=== PATIENT | female | born 1970 | race African-American/Black ===

== ENCOUNTER → 2018-05-26 | Outpatient (CLI) | payer OTHER ==
[~2018-05-26] MED LIST: EXCEDRIN CAPLE1 EACH PO; EXCEDRIN SINUS1 EAC2 PO; FIORICET 50-321 EACH PO; HYDROCODON-ACE1 EACH PO; IBUPROFEN 800800 M1 PO; ZOFRAN 4 MG ORAL4 M1 DIS
== END ==
LOC: RAD 14:07
DX: Z12.31 Encounter for screening mammogram for malignant neoplasm of breast (principal)

== ENCOUNTER 2018-09-07 00:22 | Emergency (ER) | payer OTHER ==
[~2018-09-07] VITALS: Ht 170.2 cm; Wt 97.1 kg
[2018-09-07] MEDS ORDERED: COZAAR 25 MG TA25 M1 PO (00:57)
[2018-09-07] MEDS ORDERED: AMLODIPINE BESY10 MG PO (00:57)
[2018-09-07] MEDS ORDERED: NAPROSYN500 MG PO (01:00)
[2018-09-07] MEDS ORDERED: TESSALON PERLE100 MG PO (01:00)
[2018-09-07 01:17] VITALS: BP 150/103
--- NOTE | 2018-09-07 11:04 | EKG ---
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 ��������������������������������������������� 09/07/18 1104 0037 003 Mark Recio MD, FACC /EPI
== END 2018-09-07 01:31 | disposition home or self-care (01) ==
LOC: ER 00:22
DX: J06.9 Acute upper respiratory infection, unspecified (principal); R07.89 Other chest pain; G43.909 Migraine, unspecified, not intractable, without status migrainosus

== ENCOUNTER → 2018-12-05 | Outpatient (CLI) | payer OTHER ==
[~2018-12-05] MED LIST changes: +AMLODIPINE BESY10 MG PO; +COZAAR 25 MG TA25 M1 PO; +NAPROSYN500 MG PO; +TESSALON PERLE100 MG PO
== END ==
LOC: ULTRA 13:26
DX: N60.02 Solitary cyst of left breast (principal)

== ENCOUNTER 2018-12-23 14:33 | Emergency (ER) | payer OTHER ==
[~2018-12-23] VITALS: Ht 170.2 cm; Wt 101.6 kg
[2018-12-23 14:44] VITALS: BP 138/84
[2018-12-23] MEDS ORDERED: FLEXERIL PO (15:38)
[2018-12-23] MEDS ORDERED: IBUPROFEN 600600 M1 PO (15:38)
== END 2018-12-23 15:30 | disposition home or self-care (01) ==
LOC: ER 14:33
DX: S39.012A Strain of muscle, fascia and tendon of lower back, initial encounter (principal); G43.909 Migraine, unspecified, not intractable, without status migrainosus; I10 Essential (primary) hypertension; Z90.710 Acquired absence of both cervix and uterus; X58.XXXA Exposure to other specified factors, initial encounter; Y93.89 Activity, other specified; Y92.89 Other specified places as the place of occurrence of the external cause; Y99.8 Other external cause status

== ENCOUNTER → 2019-06-05 | Outpatient (CLI) | payer OTHER ==
[~2019-06-05] MED LIST changes: +FLEXERIL PO; +IBUPROFEN 600600 M1 PO
== END ==
LOC: RAD 11:12
DX: Z12.31 Encounter for screening mammogram for malignant neoplasm of breast (principal)

== ENCOUNTER 2019-09-21 15:33 | Emergency (ER) | payer OTHER ==
[~2019-09-21] VITALS: Ht 172.7 cm; Wt 101.6 kg
[2019-09-21 15:42] VITALS: BP 138/88
[2019-09-21 17:06] LABS: ABSOLUTE NEUTROPHILS 5.2 thou/uL (1.4-8.2); EOSINOPHILS 2.7 % (0.0-3.0); HEMATOCRIT 34.6 % (37.0-47.0); HEMOGLOBIN 11.5 gm/dL (12.0-15.0); LYMPHOCYTES 28.7 % (24.0-44.0); MCH 29.1 pg (26.0-34.0); MCHC 33.2 g/dL (28.0-37.0); MCV 87.7 fL (80.0-100.0); MONOCYTES 7.8 % (1.0-8.0); PLATELET COUNT 263 thou/uL (150-400); POLYS 59.8 % (36.0-66.0); RBC 3.94 mil/uL (4.20-5.00); RDW 13.4 % (10.5-14.5); WBC 8.8 thou/uL (4.0-11.0)
[2019-09-21 17:19] LABS: ANION GAP 7 mmol/L (7-16); BUN 9 mg/dL (7-18); CHLORIDE 101 mmol/L (98-107); CO2 28 mmol/L (21-32); CREATININE 0.7 mg/dL (0.6-1.0); GLUCOSE 108 mg/dL (74-106); POTASSIUM 3.4 mmol/L (3.5-5.1); SODIUM 136 mmol/L (136-145)
[2019-09-21 17:28] LABS: ALBUMIN 3.4 g/dL (3.4-5.0); SGOT 15 U/L (15-37); SGPT 22 U/L (30-65); TOTAL BILIRUBIN 0.2 mg/dL (<0.1-1.0); TOTAL PROTEIN 7.4 g/dL (6.4-8.2); TROPONIN-I <0.06 ng/mL (<0.06)
[2019-09-21] MEDS ORDERED: PROTONIX40 M1 PO (18:52)
[2019-09-21] MEDS ORDERED: CARAFATE 1 GM TA1 G1 PO (18:52)
--- NOTE | 2019-09-22 17:18 | EKG ---
[facility] [place] [address] ELECTROCARDIOGRAM REPORT Name: FORREST RIVAS Room #: DEP [facility]#: [id number] Admission: 09/21/19 Attend Phys: Discharge: 09/21/19 Date of : 74 Report #: [id number] THIS REPORT FOR: cc: Coni Alcaraz DNP, Mary E. DNP Couchonnal, Luis F. MD ~ THIS REPORT FOR: //name// [facility] ED Test Date: 2019-09-21 Test Time: 16:34:33 Pat Name: FORREST RIVAS Department: Room: Gender: Guide Excursion: eve : 1970 Requested By: Nhi Bland Order Number: [id number] MD: Sameer Poe Measurements Intervals [place] Rate: 81 P: 54 ND: 144 QRS: 26 QRSD: 95 T: 27 QT: 376 QTc: 437 Interpretive Statements Sinus rhythm Probable left atrial enlargement Compared to ECG 09/07/2018 00:37:53 No significant changes Electronically Signed On 09-22-2019 17:16:44 CDT by Sameer Poe [email or web address] <ELECTRONICALLY SIGNED> By: Sameer Poe MD 09/22/19 1716 [id number] [id number] Sameer Poe MD /EPI
== END 2019-09-21 19:12 | disposition home or self-care (01) ==
LOC: ER 15:33
PROVIDERS: Physician Assistant
DX: R13.10 Dysphagia, unspecified (principal); T38.0X5A Adverse effect of glucocorticoids and synthetic analogues, initial encounter; K29.70 Gastritis, unspecified, without bleeding; I10 Essential (primary) hypertension; G43.909 Migraine, unspecified, not intractable, without status migrainosus; Z90.49 Acquired absence of other specified parts of digestive tract; Z79.899 Other long term (current) drug therapy; Z79.82 Long term (current) use of aspirin; Y92.89 Other specified places as the place of occurrence of the external cause

== ENCOUNTER → 2019-11-09 | Outpatient (CLI) | payer OTHER ==
[~2019-11-09] MED LIST changes: +CARAFATE 1 GM TA1 G1 PO; +PROTONIX40 M1 PO
== END ==
LOC: RAD 14:55
DX: M25.78 Osteophyte, vertebrae (principal); M54.31 Sciatica, right side; M54.32 Sciatica, left side

== ENCOUNTER → 2019-12-29 | Outpatient (CLI) | payer OTHER | LOC: MRI 12:19 | PROVIDERS: ATTEND Nurse Practitioner | DX: M51.25 Other intervertebral disc displacement, thoracolumbar region (principal); R29.898 Other symptoms and signs involving the musculoskeletal system; M54.16 Radiculopathy, lumbar region; M25.78 Osteophyte, vertebrae ==

== ENCOUNTER → 2019-12-30 | Outpatient (CLI) | payer OTHER ==
[~2019-12-30] VITALS: Ht 170.2 cm; Wt 110.2 kg
--- NOTE | ~2019-12-30 | HPC ---
[facility] [place] [address] PAIN MANAGEMENT CONSULTATION Name: FORREST RIVAS Room #: REG [facility]#: [id number] Admission: 12/30/19 Attend Phys: Flaquito Evans MD Discharge: Date of : 74 Report #: [id number] THIS REPORT FOR: cc: Coni Alcaraz DNP, Mary E. DNP Brown, N. Wayne MD ~ CC: Coni Evans DATE OF SERVICE: 12/30/2019 CHIEF COMPLAINT: "Low back spasms and I can't stand." HISTORY: The patient is a 49-year-old female who has been referred to the pain clinic for evaluation of back pain. She has been having pain since September of this year. She was provided a Medrol Dosepak. Her pain continues to be problematic. She has attended physical therapy for low back pain. She continues to have pain that involves her right leg. She complains of a pulling sensation. It radiates down into the buttocks on the right side down into her lower leg. She did have epidural steroid injections in the distant past about 20 years ago. She found them helpful. Her job is somewhat physical. She complains of numbness, tingling in the right buttocks. This radiates down into her toes on the right side. Feels a numb sensation when she lies on her right side. She has tried nonsteroidal anti-inflammatory medications like ibuprofen. ALLERGIES: No known drug allergies. CURRENT MEDICATIONS: Cozaar 25 mg, amlodipine 10 mg, Excedrin caplets. PAST MEDICAL HISTORY: 1. Breast cyst on the left, 11/2018. 2. Hypertension. 3. Lumbar radicular pain. Epidurals approximately in the year 1999. 4. Migraine headaches. PAST SURGICAL HISTORY: Cholecystectomy, hysterectomy, fibroids, tubal ligation. 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 REVIEW OF SYSTEMS: Generally good health, fevers, headaches, wears glasses, numbness and tingling sensation. LABORATORY DATA: 1. MRI of the lumbar spine dated 12/29/2019. 2. L3-L4, there is no significant disk bulge. The central canal is not grossly narrowed. There is facet arthropathy and hypertrophy of the ligamentum flavum. [address] [address] PAIN MANAGEMENT CONSULTATION Name: FORREST RIVAS Room #: REG [facility]#: [id number] Admission: 12/30/19 Attend Phys: Flaquito Evans MD Discharge: Date of : 74 Report #: [id number] There is no significant neural foraminal stenosis. 3. L4-L5, there is a subligamentous disk protrusion. There is hypertrophy of the ligamentum flavum. There is hypertrophic facet arthropathy. There is moderate bilateral recess stenosis and mild impingement of the bilateral descending L5 nerve roots. The central spinal canal is not grossly narrowed. The facet arthropathy is moderately noted at the right neural foramen. 4. L5-S1, there is a disk osteophyte complex. This effaces the bilateral S1 nerve root against the facets. The central canal is not narrowed. There is no significant neural foraminal stenosis. IMPRESSION: A disk osteophyte, L5-S1 creates mass effect upon and impinges the descending S1 nerve roots bilaterally, consistent facets. There is a L4-L5 subligamentous disk protrusion. This contributes to moderate bilateral recess stenosis and mild effacement of the bilateral descending L5 nerve roots. PAIN CLINIC ASSESSMENT AND PQRS: 1. History of back osteoarthritis. 2. History of rheumatoid arthritis. The patient is not being treated for rheumatoid arthritis. 3. Height 5 feet 7 inches, weight 243 pounds, BMI 38.1. 4. Vital signs: Blood pressure 158/79, pulse 95, respiratory rate 16, room air saturation 100%. 5. Pain intensity, 7/10. 6. Fall risk. The patient has not fallen in the last 3 months. 7. Blood thinner. The patient is not on a blood thinning medication. 8. Hypertension. The patient is being treated for hypertension. 9. Opioids greater than 6 weeks. The patient received medication from her primary physician. 10. Risk assessment tool, low for opioid use. 11. Functional assessment tool, 52/70. 12. Recreational drug use. The patient denies. 13. Tobacco. The patient has never smoked. 14. Alcohol. The patient drinks alcoholic beverages on occasion. PHYSICAL EXAMINATION: GENERAL: The patient is a well-developed, well-nourished, black female. Appears her stated age. She is alert and oriented x 3. Her affect is appropriate. Speech is fluent. HEENT: Normocephalic, atraumatic. Extraocular eye muscles intact. Sclerae nonicteric. Mucous membranes are moist. The patient is wearing a mask. HEART: Regular rate. LUNGS: Clear. ABDOMEN: Nontender. Bowel sounds present. EXTREMITIES: Upper extremity muscle strength judged to be 5/5 for the major muscle groups in the upper extremity. Deep tendon reflexes are trace in the biceps bilaterally. The patient complains of pain and discomfort in the lower [facility] [address] [place] [address] PAIN MANAGEMENT CONSULTATION Name: FORREST RIVAS Room #: REG [facility]#: [id number] Admission: 12/30/19 Attend Phys: Flaquito Evans MD Discharge: Date of : 74 Report #: [id number] portion of her back with pain radiating down into the left and the right buttocks and into the calf area. IMPRESSION: 1. L5-S1 nerve root irritation/sciatica. 2. Breast cyst on the left, 11/2018. 3. Hypertension. 4. Lumbar radicular pain. Epidurals approximately in the year 1999. 5. Migraine headaches. RECOMMENDATIONS: We discussed treatment options with the patient. The risks and benefits of an epidural steroid injection were discussed. A model was used to illustrate the areas of pathology. We reviewed her MRI findings. The patient states that she understands. The risk of an epidural steroid injection, which could include but are not limited to infection, worsening of pain, no improvement in pain, nerve damage were discussed. The patient will return to the pain clinic, at which time she will undergo an epidural steroid injection to help control the pain and discomfort she is experiencing. A model was used to eliminate the problem. The patient also saw a video indicating the pathophysiology and cause of lumbar radicular pain. She felt that these items were beneficial. We would like to thank you for letting us participate in her care. We hope she continues to improve. By: [id number] Flaquito Evans MD /PMT
[2019-12-30 08:50] VITALS: BP 158/79
--- NOTE | 2019-12-30 09:19 | NUR ---
Pain Clinic Assessment: 1. History of Osteoarthritis: BACK History of Rheumatoid Arthritis: Not Applicable 2. Height: 5 ft. 7 in. 170.2 cm. Weight: 243.0 lb. oz. 110.224 kg. Patient's BMI: 38.1 3. Vital Signs: BP: 158/79 Pulse: 95 Resp: 16 Temp: 02 Sat: 100 ECG Mon: 4. Pain Intensity: 7 5. Fall Risk: Dizziness: N Needs help standing or walking: N Fallen in the last 3 months: N Fall risk comments: 6. Patient on Blood Thinner: None 7. History of Hypertension: Y 8. Opioid Therapy greater than 6 weeks: N Opiate Contract Signed: 9. Risk Assessment Tool Provided: LOW RISK 0/3 10. Functional Assessment Tool: 11. Recreational Drug Use: Never Drug Type: Tobacco Use: Never Smoker Tobacco Type: Amount or Packs/day: How Many Years: Alcohol Use: Yes Frequency: Special Occasions Quant: 1
== END ==
LOC: PAIN 06:51
PROVIDERS: ATTEND Anesthesiology Pain Medicine
DX: M62.830 Muscle spasm of back (principal); G54.4 Lumbosacral root disorders, not elsewhere classified; I10 Essential (primary) hypertension; N60.02 Solitary cyst of left breast; G43.009 Migraine without aura, not intractable, without status migrainosus; Z79.899 Other long term (current) drug therapy

== ENCOUNTER → 2020-01-20 | Outpatient (CLI) | payer OTHER ==
[~2020-01-20] VITALS: Ht 170.2 cm; Wt 120.3 kg
[2020-01-20 14:45] VITALS: BP 137/86
--- NOTE | 2020-01-20 14:51 | NUR ---
Pain Clinic Assessment: 1. History of Osteoarthritis: BACK History of Rheumatoid Arthritis: Not Applicable 2. Height: 5 ft. 7 in. 170.2 cm. Weight: 265.2 lb. oz. 120.294 kg. Patient's BMI: 41.5 3. Vital Signs: BP: 137/86 Pulse: 94 Resp: 18 Temp: 02 Sat: 99 ECG Mon: 4. Pain Intensity: 6 5. Fall Risk: Dizziness: N Needs help standing or walking: N Fallen in the last 3 months: N Fall risk comments: 6. Patient on Blood Thinner: None 7. History of Hypertension: Y 8. Opioid Therapy greater than 6 weeks: N Opiate Contract Signed: 9. Risk Assessment Tool Provided: LOW RISK 0/3 10. Functional Assessment Tool: 11. Recreational Drug Use: Never Drug Type: Tobacco Use: Never Smoker Tobacco Type: Amount or Packs/day: How Many Years: Alcohol Use: Yes Frequency: Special Occasions Quant: 1-2
== END | disposition home or self-care (01) ==
LOC: PAIN 07:02
PROVIDERS: ATTEND Anesthesiology Pain Medicine
DX: M54.16 Radiculopathy, lumbar region (principal); G89.29 Other chronic pain; Z98.890 Other specified postprocedural states; Z79.899 Other long term (current) drug therapy

== ENCOUNTER → 2020-03-25 | Outpatient (CLI) | payer OTHER ==
[~2020-03-25] VITALS: Ht 170.2 cm; Wt 120.7 kg
[2020-03-25 12:56] VITALS: BP 153/88
--- NOTE | 2020-03-25 13:00 | NUR ---
Pain Clinic Assessment: 1. History of Osteoarthritis: BACK History of Rheumatoid Arthritis: Not Applicable 2. Height: 5 ft. 7 in. 170.2 cm. Weight: 266.0 lb. oz. 120.657 kg. Patient's BMI: 41.7 3. Vital Signs: BP: 153/88 Pulse: 86 Resp: 15 Temp: 02 Sat: 97 ECG Mon: 4. Pain Intensity: 7 5. Fall Risk: Dizziness: N Needs help standing or walking: N Fallen in the last 3 months: N Fall risk comments: 6. Patient on Blood Thinner: None 7. History of Hypertension: Y 8. Opioid Therapy greater than 6 weeks: N Opiate Contract Signed: 9. Risk Assessment Tool Provided: LOW RISK 0/3 10. Functional Assessment Tool: 11. Recreational Drug Use: Never Drug Type: Tobacco Use: Never Smoker Tobacco Type: Amount or Packs/day: How Many Years: Alcohol Use: Yes Frequency: Quant:
== END | disposition home or self-care (01) ==
LOC: PAIN 06:53
PROVIDERS: ATTEND Anesthesiology Pain Medicine
DX: M54.16 Radiculopathy, lumbar region (principal); G89.29 Other chronic pain; I10 Essential (primary) hypertension; G43.909 Migraine, unspecified, not intractable, without status migrainosus; Z98.890 Other specified postprocedural states; Z79.899 Other long term (current) drug therapy

== ENCOUNTER → 2020-06-15 | Outpatient (CLI) | payer OTHER | LOC: BC 14:37 | PROVIDERS: ATTEND Nurse Practitioner | DX: Z12.31 Encounter for screening mammogram for malignant neoplasm of breast (principal) ==

== ENCOUNTER → 2021-07-03 | Outpatient (CLI) | payer OTHER | LOC: BC 11:52 | PROVIDERS: ATTEND Nurse Practitioner | DX: Z12.31 Encounter for screening mammogram for malignant neoplasm of breast (principal); N64.89 Other specified disorders of breast ==